=== PATIENT | female | born 1985 | race Two or more races ===

== ENCOUNTER 2017-08-02 10:06 | Emergency (ER) | payer OTHER ==
[~2017-08-02] VITALS: Ht 162.6 cm; Wt 54.4 kg
[2017-08-02 10:07] VITALS: Ht 162.6 cm; Wt 54.4 kg
[2017-08-02 15:05] VITALS: BP 108/73
== END 2017-08-02 15:04 | disposition home or self-care (01) ==
LOC: ED 10:06
DX: N94.6 Dysmenorrhea, unspecified (principal)
CPT/HCPCS: J1885

== ENCOUNTER → 2019-01-23 | Outpatient (CLI) | payer OTHER | END | disposition home or self-care (01) | LOC: LB 13:18 | DX: E22.1 Hyperprolactinemia (principal) ==

== ENCOUNTER → 2019-09-21 | Outpatient (CLI) | payer OTHER | END | disposition home or self-care (01) | LOC: LB 12:36 | PROVIDERS: ATTEND Obstetrics & Gynecology | DX: N92.6 Irregular menstruation, unspecified (principal) ==

== ENCOUNTER → 2019-10-11 | Outpatient (CLI) | payer OTHER | END | disposition home or self-care (01) | LOC: LB 08:15 | PROVIDERS: ATTEND Obstetrics & Gynecology | DX: N92.5 Other specified irregular menstruation (principal) ==

== ENCOUNTER → 2019-11-20 | Outpatient (CLI) | payer OTHER ==
[2019-11-20 11:49] LABS: BASOPHIL % 0.5 % (0-2); PLATELET COUNT 277 x10^3mcL (130-400); RED CELL DISTRIBUTION WIDTH 13.2 % (11.5-14.5)
[2019-11-20 14:12] LABS: AMPHETAMINE QUAL UR NONE DETECTED (See below)
[2019-11-21 05:08] LABS: RAPID PLASMA REAGIN Non Reactive (Non Reactive)
== END | disposition home or self-care (01) ==
LOC: LB 11:07
PROVIDERS: ATTEND Obstetrics & Gynecology
DX: Z33.1 Pregnant state, incidental (principal)
CPT/HCPCS: 87491; 87591

== ENCOUNTER → 2020-01-07 | Outpatient (CLI) | payer OTHER | END | disposition home or self-care (01) | LOC: LB 14:50 | PROVIDERS: ATTEND Obstetrics & Gynecology | DX: E55.9 Vitamin D deficiency, unspecified (principal); E53.8 Deficiency of other specified B group vitamins ==

== ENCOUNTER → 2020-01-18 | Outpatient (CLI) | payer OTHER | END | disposition home or self-care (01) | LOC: US 10:45 | PROVIDERS: ATTEND Obstetrics & Gynecology | PROC: B54DZZZ Ultrasonography of Bilateral Lower Extremity Veins (ICD-10-PCS; principal; 2020-01-18) | DX: M79.662 Pain in left lower leg (principal) ==